=== PATIENT | female | born 1945 | race Caucasian/White ===

== ENCOUNTER 2019-11-13 18:20 | Emergency (ER) | payer OTHER ==
[2019-11-13] MEDS ORDERED: MORPHINE SULFATE 4 MG/1ML SYG ONE (19:58)
[2019-11-13] MEDS ORDERED: DIAZEPAM 2 MG TAB ONE (19:58)
== END 2019-11-13 21:17 | disposition home or self-care (01) ==
LOC: EDH 18:20
DX: M54.31 Sciatica, right side (principal); M81.0 Age-related osteoporosis without current pathological fracture; I10 Essential (primary) hypertension; J44.9 Chronic obstructive pulmonary disease, unspecified; Z87.891 Personal history of nicotine dependence
CPT/HCPCS: 73502; 96372; 99284; J2270

== ENCOUNTER 2022-02-21 09:58 | Emergency (ER) | payer OTHER ==
[~2022-02-21] VITALS: Ht 165.1 cm; Wt 67.1 kg
[2022-02-21 10:05] VITALS: BP 173/71
[2022-02-21] MEDS ORDERED: MORPHINE 4 MG SYG IVP SCH (11:00)
[2022-02-21] MEDS ORDERED: KETOROLAC 15MG/ML VIAL (15MG/ML) IV SCH (11:00)
[2022-02-21] MEDS ORDERED: ORPHENADRINE CITRATE 30 MG/ML ML IVP SCH (11:00)
[2022-02-21 11:04] LABS: BASOPHILS % (AUTO) 0.4 % (0.0-5.0); EOSINOPHILS % (AUTO) 1.1 % (0.0-8.0); HEMATOCRIT 36.6 % (36-48); LYMPHOCYTES % (AUTO) 29.9 % (21.0-51.0); MEAN CORPUSCULAR HEMOGLOBIN 29.5 pg (27.0-33.0); MEAN CORPUSCULAR HGB CONC 33.9 g/dL (32.0-36.0); MEAN CORPUSCULAR VOLUME 86.9 fL (79-99); MONOCYTES % (AUTO) 7.3 % (3.0-13.0); NEUTROPHILS % (AUTO) 60.9 % (40.0-77.0); PLATELET COUNT (AUTO) 195 K/uL (130-400); RED BLOOD CELL COUNT(AUTO) 4.21 MIL/uL (4.00-5.50); RED CELL DISTRIBUTION WIDTH 13.9 % (11.0-15.5); WHITE BLOOD COUNT (AUTO) 5.6 K/uL (4.8-10.8)
[2022-02-21 11:13] LABS: CREATININE 0.8 mg/dL (0.5-1.5)
[2022-02-21 11:18] LABS: ALBUMIN 3.8 g/dL (3.5-5.0); BILIRUBIN,TOTAL 0.7 mg/dL (0.2-1.0); TOTAL PROTEIN, SERUM 6.7 g/dL (6.0-8.3)
[2022-02-21] MEDS ORDERED: ACET-2079 PO (12:49)
[2022-02-21] MEDS ORDERED: TIZA4CAP8 PO (12:49)
[2022-02-21] MEDS ORDERED: KETO10 PO (12:49)
== END 2022-02-21 13:31 | disposition home or self-care (01) ==
LOC: EDH 09:58
DX: M54.12 Radiculopathy, cervical region (principal); D64.9 Anemia, unspecified; I10 Essential (primary) hypertension; F17.210 Nicotine dependence, cigarettes, uncomplicated; Z98.890 Other specified postprocedural states
CPT/HCPCS: 36415; 71045; 72125; 80053; 84484; 85025; 93005; 96374; 96375; 99285; J1885; J2270; J2360